=== PATIENT | female | born 1965 | race African-American/Black ===

== ENCOUNTER 2016-04-03 18:24 | Emergency (ER) | payer MEDICAID ==
[~2016-04-03] VITALS: Ht 157.5 cm; Wt 90.7 kg
[~2016-04-03 18:24] MED LIST: ALBU6.7H IH; DILT30TA14 PO; FERR325T41 PO; FURO40TA2 PO; HYDR-3326 PO; IBUP-1955 PO; PANT40TA2 PO; PRED20TA PO; PROP40TA7 PO; SIME125C81 PO
[2016-04-03] MEDS ORDERED: ALBUTEROL FS 2.5 MG/3 ML VIAL.NEB NEB ONE (23:00)
[2016-04-03] MEDS ORDERED: ASPIRIN 325 MG TABLET PO ONE (23:00)
[2016-04-03 23:07] LABS: BASOPHILS % (AUTO) 0.6 % (0.0-2.0); DIFF TOTAL % 100 %; EOSINOPHILS # (AUTO) 0.2 /CMM (0.0-0.7); EOSINOPHILS % (AUTO) 4.6 % (0.0-6.0); HEMATOCRIT 35 % (33-45); HEMOGLOBIN 10.7 g/dL (11.5-14.8); LYMPHOCYTES # (AUTO) 0.3 /CMM (0.8-4.8); LYMPHOCYTES % (AUTO) 6.8 % (20.0-44.0); MEAN CORPUSCULAR HEMOGLOBIN 23 PG (26.0-33.0); MEAN CORPUSCULAR HGB CONC 31 g/dl (31.0-36.0); MEAN CORPUSCULAR VOLUME 74 fL (82-100); MONOCYTES # (AUTO) 0.9 /CMM (0.1-1.30); MONOCYTES % (AUTO) 19.7 % (2.0-12.0); NEUTROPHILS # (AUTO) 3.1 /CMM (1.8-8.9); NEUTROPHILS % (AUTO) 68.3 % (43.0-81.0); PLATELET COUNT (AUTO) 190 /CMM (150-450); RED BLOOD CELL COUNT(AUTO) 4.67 MIL/uL (4.0-5.2); WHITE BLOOD COUNT (AUTO) 4.6 K/uL (4.3-11.0)
[2016-04-03 23:13] LABS: ANION GAP 12 (5-14); CARBON DIOXIDE 24 mmol/L (21-32); CHLORIDE 108 mmol/L (98-107); CREATININE 0.6 mg/dL (0.6-1.3); GFR 128 mL/min (>60); GLUCOSE 96 mg/dL (74-106); POTASSIUM 4.2 mmol/L (3.5-5.1); SODIUM SERUM 140 mmol/L (136-145); UREA NITROGEN, BLOOD 15 mg/dL (7-18)
[2016-04-03 23:21] LABS: TROPONIN I < 0.017 ng/mL (0.00-0.056)
[2016-04-03 23:25] LABS: ALANINE AMINOTRANSFERASE 15 U/L (12-78); ALBUMIN 2.3 g/dL (3.4-5.0); ASPARTATE AMINOTRANSFERASE 22 U/L (15-37); BILIRUBIN,DIRECT 0.3 mg/dL (0.0-0.2); BILIRUBIN,TOTAL 0.5 mg/dL (0.2-1.0); INDIRECT BILIRUBIN 0.2 mg/dL (0.0-1.1); TOTAL PROTEIN, SERUM 6.5 g/dL (6.4-8.2)
[2016-04-03] MEDS ORDERED: ALBUTEROL FS 2.5 MG/3 ML VIAL.NEB ONE (23:39)
[2016-04-03] MEDS ORDERED: ASPIRIN EC 81 MG TABLET.DR PO ONE (23:41)
[2016-04-03 23:49] LABS: INR 1.12 (0.87-1.13); PROTHROMBIN TIME 12.1 SECS (9.5-12.7)
[2016-04-04] MEDS ORDERED: FUROSEMIDE 20 MG/2 ML VIAL IV ONE (01:00)
[2016-04-04 07:06] VITALS: BP 125/70
== END 2016-04-04 04:04 | disposition home or self-care (01) ==
LOC: ER 18:27
DX: I50.9 Heart failure, unspecified (principal); J45.901 Unspecified asthma with (acute) exacerbation; M54.5 Low back pain; G89.29 Other chronic pain; M79.671 Pain in right foot; M79.604 Pain in right leg; I48.91 Unspecified atrial fibrillation; Z88.2 Allergy status to sulfonamides; Z88.6 Allergy status to analgesic agent; Z88.8 Allergy status to other drugs, medicaments and biological substances
CPT/HCPCS: 36415; 71010; 72100; 80048; 80076; 83880; 84484; 85025; 85730; 93005; 94640; 99285; A4606; A6402; Z7610

== ENCOUNTER 2016-04-13 21:03 | Inpatient (IN) | payer MEDICAID ==
[~2016-04-13] VITALS: Ht 157.5 cm; Wt 98.4 kg
[2016-04-13] MEDS ORDERED: FUROSEMIDE 40 MG/4 ML VIAL IV ONE (22:30)
[2016-04-13] MEDS ORDERED: ASPIRIN 325 MG TABLET PO ONE (22:30)
[2016-04-13] MEDS ORDERED: ALBUTEROL FS 2.5 MG/3 ML VIAL.NEB NEB ONE (22:30)
[2016-04-13] MEDS ORDERED: FUROSEMIDE 40 MG/4 ML VIAL ONE (22:39)
[2016-04-13] MEDS ORDERED: ASPIRIN 81 MG TAB.CHEW ONE (22:39)
[2016-04-13 22:48] LABS: BASOPHILS % (AUTO) 0.2 % (0.0-2.0); DIFF TOTAL % 100 %; EOSINOPHILS # (AUTO) 0.2 /CMM (0.0-0.7); EOSINOPHILS % (AUTO) 5.2 % (0.0-6.0); HEMATOCRIT 35 % (33-45); HEMOGLOBIN 11.1 g/dL (11.5-14.8); LYMPHOCYTES # (AUTO) 0.3 /CMM (0.8-4.8); LYMPHOCYTES % (AUTO) 6.6 % (20.0-44.0); MEAN CORPUSCULAR HEMOGLOBIN 23 PG (26.0-33.0); MEAN CORPUSCULAR HGB CONC 31 g/dl (31.0-36.0); MEAN CORPUSCULAR VOLUME 74 fL (82-100); MONOCYTES # (AUTO) 0.8 /CMM (0.1-1.30); MONOCYTES % (AUTO) 17.6 % (2.0-12.0); NEUTROPHILS # (AUTO) 3.2 /CMM (1.8-8.9); NEUTROPHILS % (AUTO) 70.4 % (43.0-81.0); PLATELET COUNT (AUTO) 205 /CMM (150-450); RED BLOOD CELL COUNT(AUTO) 4.81 MIL/uL (4.0-5.2); WHITE BLOOD COUNT (AUTO) 4.6 K/uL (4.3-11.0)
[2016-04-13] MEDS ORDERED: ALBUTEROL FS 2.5 MG/3 ML VIAL.NEB ONE (22:54)
[2016-04-13 23:01] LABS: ANION GAP 11 (5-14); CALCIUM, SERUM 7.8 mg/dL (8.5-10.1); CARBON DIOXIDE 24 mmol/L (21-32); CHLORIDE 108 mmol/L (98-107); CREATININE 0.6 mg/dL (0.6-1.3); GFR 128 mL/min (>60); GLUCOSE 95 mg/dL (74-106); POTASSIUM 4.3 mmol/L (3.5-5.1); SODIUM SERUM 138 mmol/L (136-145); UREA NITROGEN, BLOOD 16 mg/dL (7-18)
[2016-04-13 23:04] LABS: INR 1.08 (0.87-1.13); PROTHROMBIN TIME 11.7 SECS (9.5-12.7)
[2016-04-13 23:07] LABS: TROPONIN I < 0.017 ng/mL (0.00-0.056)
[2016-04-14] MEDS ORDERED: DILTIAZEM HCL 30 MG TABLET ONE (00:43)
[2016-04-14] MEDS ORDERED: METOPROLOL TARTRATE 25 MG TABLET ONE (00:51)
[2016-04-14] MEDS ORDERED: DILTIAZEM HCL 30 MG TABLET PO ONE (01:00)
[2016-04-14 01:03] LABS: BAND % (MANUAL) 1 % (0.0-5.0); BASOPHILS % (MANUAL) 0 % (0.0-2.0); EOSINOPHILS % (MANUAL) 6 % (0-4); LYMPHOCYTES % (MANUAL) 14 % (16-48); PLATELET ESTIMATE ADEQUATE
[2016-04-14 01:04] LABS: ANISOCYTOSIS 1+
[2016-04-14] MEDS ORDERED: METOPROLOL TARTRATE 25 MG TABLET PO ONE (01:30)
[2016-04-14 04:00] VITALS: BP 164/91
[2016-04-14] MEDS ORDERED: ACETAMINOPHEN 325 MG TABLET PO PRN (05:00)
[2016-04-14] MEDS ORDERED: ENOXAPARIN SODIUM 40 MG/0.4 ML DISP.SYRIN SQ SCH (05:00)
[2016-04-14] MEDS ORDERED: Z GUARD REMEDY 2 OZ OINT TP PRN (05:00)
[2016-04-14] MEDS ORDERED: NITROGLYCERIN PACKET 1 GM PACKET TOP SCH (05:00)
[2016-04-14] MEDS ORDERED: MAG HYDROX/AL HYDROX/SIMETH 30 ML UDC PO PRN (05:00)
[2016-04-14] MEDS ORDERED: ONDANSETRON HCL/PF 4 MG/2 ML VIAL IVP PRN (05:00)
[2016-04-14] MEDS ORDERED: ZOLPIDEM TARTRATE 5 MG TABLET PO PRN (05:00)
[2016-04-14] MEDS ORDERED: MAGNESIUM HYDROXIDE 30 ML UDC PO PRN (05:00)
[2016-04-14] MEDS ORDERED: MORPHINE SULFATE INJ 2 MG/ML DISP.SYRIN IV PRN (05:00)
[2016-04-14] MEDS: DILTIAZEM HCL 30 MG TABLET PO SCH ×4 (06:00→23:30)
[2016-04-14 08:00] VITALS: BP_SYST 120; BP_SYST 125; BP_DIAS 72; BP_DIAS 77
[2016-04-14] MEDS: HYDROCODONE/APAP 5/325MG 1 EACH TABLET PO PRN ×2 (08:38→21:16)
[2016-04-14] MEDS: PANTOPRAZOLE 40 MG TABLET.DR PO SCH (08:39)
[2016-04-14] MEDS: FERROUS SULFATE (325 MG) 325 MG/TAB TABLET PO SCH (08:39)
[2016-04-14] MEDS: PROPRANOLOL HCL 40 MG TABLET PO SCH ×3 (09:00→16:19)
[2016-04-14] MEDS ORDERED: SIMETHICONE 80 MG TAB.CHEW PO PRN (09:00)
[2016-04-14] MEDS: NITROGLYCERIN 30 GM TUBE TOP SCH ×2 (09:00→21:00)
[2016-04-14] MEDS ORDERED: FUROSEMIDE 40 MG/4 ML VIAL IV SCH (09:00)
[2016-04-14] MEDS ORDERED: BUMETANIDE INJ 8 MG in IV NS 0.9% 48 ML IV ONE (09:30)
[2016-04-14 10:22] LABS: IRON, SERUM 25 ug/dl (50-175); PERCENT SATURATION 7 % (14-33); TOTAL IRON BINDING CAPACITY 357 ug/dl (250-450)
[2016-04-14] MEDS ORDERED: LEVALBUTEROL HCL NEB 1.25 MG/0.5 ML VIAL.NEB IH SCH (10:30)
[2016-04-14 10:36] LABS: CHOLESTEROL 99 mg/dL (<200); HDL CHOLESTEROL 29 mg/dL (40-60); LDL 63 mg/dL (0-99); THYROID STIMULATING HORMONE < 0.007 uIU/mL (0.358-3.74); TRIGLYCERIDES 46 mg/dL (30-150)
[2016-04-14] MEDS ORDERED: IV SET PRIMARY PUMP SET 1 EA INFUS.SET MC ONE (10:46)
[2016-04-14] MEDS: methylPREDNISolone SOD SUCC 125 MG/2ML VIAL IV SCH ×2 (11:55→16:38)
[2016-04-14 12:00] VITALS: BP 125/70
[2016-04-14 12:07] VITALS: BP 125/70
[2016-04-14] MEDS ORDERED: METO25TA PO (13:13)
[2016-04-14] MEDS ORDERED: DIGO125T PO (13:13)
[2016-04-14] MEDS ORDERED: ERGO500013 PO (13:16)
[2016-04-14] MEDS ORDERED: METHIMAZOLE (5MG) 5 MG TABLET PO SCH (14:00)
[2016-04-14] MEDS ORDERED: DIGOXIN 0.125 MG TABLET PO SCH (14:30)
[2016-04-14] MEDS: IPRATROPIUM NEB FS 0.5 MG/2.5 ML AMPUL.NEB NEB SCH ×2 (14:33→19:54)
[2016-04-14] MEDS: ALBUTEROL FS 2.5 MG/0.5 ML VIAL.NEB NEB SCH ×2 (14:33→19:54)
[2016-04-14 15:02] LABS: URIC ACID 5.4 mg/dL (2.6-7.2)
[2016-04-14 15:15] LABS: C-REACTIVE PROTEIN 1.8 mg/dL (0.0-0.9)
[2016-04-14 15:28] LABS: THYROID STIMULATING HORMONE < 0.007 uIU/mL (0.358-3.74)
[2016-04-14 16:00] VITALS: BP 142/89
[2016-04-14] MEDS: DIGOXIN 0.125 MG TABLET PO SCH (16:19)
[2016-04-14 16:59] LABS: RETICULOCYTE COUNT 1.9 % (0.6-2.5)
[2016-04-14 20:00] VITALS: BP 133/74
[2016-04-15] MEDS: ALBUTEROL FS 2.5 MG/0.5 ML VIAL.NEB NEB SCH ×4 (00:54→19:44)
[2016-04-15] MEDS: IPRATROPIUM NEB FS 0.5 MG/2.5 ML AMPUL.NEB NEB SCH ×4 (00:54→19:44)
[2016-04-15] MEDS: HYDROCODONE/APAP 5/325MG 1 EACH TABLET PO PRN ×2 (01:46→22:23)
[2016-04-15 04:00] VITALS: BP 113/59
[2016-04-15 05:02] LABS: DIFF TOTAL % 100 %; EOSINOPHILS % (AUTO) 0.2 % (0.0-6.0); HEMATOCRIT 34 % (33-45); HEMOGLOBIN 10.8 g/dL (11.5-14.8); LYMPHOCYTES # (AUTO) 0.1 /CMM (0.8-4.8); LYMPHOCYTES % (AUTO) 2.7 % (20.0-44.0); MEAN CORPUSCULAR HEMOGLOBIN 23 PG (26.0-33.0); MEAN CORPUSCULAR HGB CONC 32 g/dl (31.0-36.0); MEAN CORPUSCULAR VOLUME 73 fL (82-100); MONOCYTES # (AUTO) 0.4 /CMM (0.1-1.30); MONOCYTES % (AUTO) 8.7 % (2.0-12.0); NEUTROPHILS # (AUTO) 3.8 /CMM (1.8-8.9); NEUTROPHILS % (AUTO) 88.4 % (43.0-81.0); PLATELET COUNT (AUTO) 211 /CMM (150-450); RED BLOOD CELL COUNT(AUTO) 4.66 MIL/uL (4.0-5.2); WHITE BLOOD COUNT (AUTO) 4.4 K/uL (4.3-11.0)
[2016-04-15 05:16] LABS: CALCIUM, SERUM 8.1 mg/dL (8.5-10.1); CREATININE 0.7 mg/dL (0.6-1.3); PHOSPHORUS 4.3 mg/dL (2.5-4.9); POTASSIUM 3.8 mmol/L (3.5-5.1)
[2016-04-15] MEDS: DILTIAZEM HCL 30 MG TABLET PO SCH ×4 (05:40→23:38)
[2016-04-15 05:55] LABS: BASOPHILS % (MANUAL) 0 % (0.0-2.0); EOSINOPHILS % (MANUAL) 0 % (0-4); LYMPHOCYTES % (MANUAL) 8 % (16-48); PLATELET ESTIMATE ADEQUATE
[2016-04-15 05:56] LABS: ANISOCYTOSIS 1+
[2016-04-15 08:00] VITALS: BP 139/75
[2016-04-15] MEDS: FERROUS SULFATE (325 MG) 325 MG/TAB TABLET PO SCH (08:52)
[2016-04-15] MEDS: methylPREDNISolone SOD SUCC 125 MG/2ML VIAL IV SCH ×2 (08:52→16:17)
[2016-04-15] MEDS: PROPRANOLOL HCL 40 MG TABLET PO SCH ×3 (08:53→16:54)
[2016-04-15] MEDS: PANTOPRAZOLE 40 MG TABLET.DR PO SCH (08:55)
[2016-04-15] MEDS: NITROGLYCERIN 30 GM TUBE TOP SCH ×2 (08:56→21:00)
[2016-04-15] MEDS: ENOXAPARIN SODIUM 40 MG/0.4 ML DISP.SYRIN SQ SCH (08:56)
[2016-04-15 09:22] LABS: *THYROGLOBULIN 1.4 IU/mL (0.0-0.9); CA 27.29 40.8 U/mL (0.0-38.6)
[2016-04-15 10:32] LABS: VIT D, 25-HYDROXY 39.7 ng/mL (30.0-100.0)
[2016-04-15] MEDS: NEOMY SULF/BACITRAC ZN/POLY 15 GM TUBE TP SCH (11:13)
[2016-04-15] MEDS ORDERED: BUMETANIDE INJ 8 MG in IV NS 0.9% 48 ML IV ONE (11:30)
[2016-04-15 12:00] VITALS: BP 123/75
[2016-04-15] MEDS ORDERED: IV SET PRIMARY PUMP SET 1 EA INFUS.SET MC ONE (12:29)
[2016-04-15] MEDS: DIGOXIN 0.125 MG TABLET PO SCH (12:32)
[2016-04-15] MEDS: POTASSIUM CHLORIDE 20 MEQ TAB.PRT.SR PO SCH ×3 (12:34→15:19)
[2016-04-15 16:00] VITALS: BP 113/82
[2016-04-15] MEDS: PROPYLTHIOURACIL 50 MG TABLET PO SCH ×2 (16:00→21:00)
[2016-04-15 18:39] LABS: ADD UA MICROSCOPIC NO; KETONES,URINE NEGATIVE (NEGATIVE); LEUKOCYTE ESTERASE ,URINE NEGATIVE (NEGATIVE); PH,URINE 6.5 (5.0-8.0)
[2016-04-15 20:00] VITALS: BP 123/74
[2016-04-16] MEDS: ALBUTEROL FS 2.5 MG/0.5 ML VIAL.NEB NEB SCH ×4 (01:08→20:14)
[2016-04-16] MEDS: IPRATROPIUM NEB FS 0.5 MG/2.5 ML AMPUL.NEB NEB SCH ×4 (01:08→20:14)
[2016-04-16 04:00] VITALS: BP 115/74
[2016-04-16] MEDS: PROPYLTHIOURACIL 50 MG TABLET PO SCH ×3 (05:00→20:33)
[2016-04-16] MEDS: DILTIAZEM HCL 30 MG TABLET PO SCH ×4 (05:59→23:16)
[2016-04-16 06:49] LABS: ALBUMIN 2.3 g/dL (3.4-5.0); BILIRUBIN,TOTAL 0.4 mg/dL (0.2-1.0); CALCIUM, SERUM 8.3 mg/dL (8.5-10.1); CREATININE 0.6 mg/dL (0.6-1.3); POTASSIUM 4.1 mmol/L (3.5-5.1); TOTAL PROTEIN, SERUM 6.8 g/dL (6.4-8.2)
[2016-04-16 08:00] VITALS: BP 126/77
[2016-04-16] MEDS: NEOMY SULF/BACITRAC ZN/POLY 15 GM TUBE TP SCH (09:00)
[2016-04-16] MEDS: NITROGLYCERIN 30 GM TUBE TOP SCH ×2 (09:00→20:34)
[2016-04-16] MEDS: methylPREDNISolone SOD SUCC 125 MG/2ML VIAL IV SCH (09:19)
[2016-04-16] MEDS ORDERED: BUMETANIDE INJ 8 MG in IV NS 0.9% 48 ML IV ONE (09:30)
[2016-04-16] MEDS: PANTOPRAZOLE 40 MG TABLET.DR PO SCH (10:38)
[2016-04-16] MEDS: PROPRANOLOL HCL 40 MG TABLET PO SCH ×3 (10:38→19:00)
[2016-04-16] MEDS: HYDROCODONE/APAP 5/325MG 1 EACH TABLET PO PRN (10:41)
[2016-04-16] MEDS: FERROUS SULFATE (325 MG) 325 MG/TAB TABLET PO SCH (10:41)
[2016-04-16] MEDS: ENOXAPARIN SODIUM 40 MG/0.4 ML DISP.SYRIN SQ SCH ×2 (10:43→10:55)
[2016-04-16] MEDS ORDERED: SECONDARY IV SET 1 EA INFUS.SET MC ONE (11:14)
[2016-04-16] MEDS ORDERED: IV SET PRIMARY PUMP SET 1 EA INFUS.SET MC ONE (11:16)
[2016-04-16 12:00] VITALS: BP_SYST 128; BP_SYST 136; BP_DIAS 4; BP_DIAS 80
[2016-04-16] MEDS: DIGOXIN 0.125 MG TABLET PO SCH (13:00)
[2016-04-16 16:00] VITALS: BP 118/72
[2016-04-16 20:00] VITALS: BP 122/77
[2016-04-16] MEDS: GUAIFENESIN LA 600 MG TABLET.SA PO SCH (20:32)
[2016-04-17] MEDS: IPRATROPIUM NEB FS 0.5 MG/2.5 ML AMPUL.NEB NEB SCH ×2 (01:36→07:55)
[2016-04-17] MEDS: ALBUTEROL FS 2.5 MG/0.5 ML VIAL.NEB NEB SCH ×2 (01:36→07:55)
[2016-04-17 04:00] VITALS: BP 122/85
[2016-04-17] MEDS: PROPYLTHIOURACIL 50 MG TABLET PO SCH (04:43)
[2016-04-17] MEDS: DILTIAZEM HCL 30 MG TABLET PO SCH (06:00)
[2016-04-17 07:49] LABS: DIFF TOTAL % 100 %; HEMATOCRIT 37 % (33-45); HEMOGLOBIN 11.6 g/dL (11.5-14.8); LYMPHOCYTES # (AUTO) 0.3 /CMM (0.8-4.8); LYMPHOCYTES % (AUTO) 2.8 % (20.0-44.0); MEAN CORPUSCULAR HEMOGLOBIN 23 PG (26.0-33.0); MEAN CORPUSCULAR HGB CONC 31 g/dl (31.0-36.0); MEAN CORPUSCULAR VOLUME 74 fL (82-100); MONOCYTES # (AUTO) 1.6 /CMM (0.1-1.30); MONOCYTES % (AUTO) 15.3 % (2.0-12.0); NEUTROPHILS # (AUTO) 8.4 /CMM (1.8-8.9); NEUTROPHILS % (AUTO) 81.9 % (43.0-81.0); PLATELET COUNT (AUTO) 252 /CMM (150-450); RED BLOOD CELL COUNT(AUTO) 5.04 MIL/uL (4.0-5.2); WHITE BLOOD COUNT (AUTO) 10.3 K/uL (4.3-11.0)
[2016-04-17 08:00] VITALS: BP 117/80
[2016-04-17 08:00] LABS: CALCIUM, SERUM 7.6 mg/dL (8.5-10.1); CREATININE 0.5 mg/dL (0.6-1.3); POTASSIUM 3.7 mmol/L (3.5-5.1)
[2016-04-17] MEDS: FERROUS SULFATE (325 MG) 325 MG/TAB TABLET PO SCH (08:59)
[2016-04-17] MEDS: PROPRANOLOL HCL 40 MG TABLET PO SCH (08:59)
[2016-04-17 09:00] VITALS: BP 117/80
[2016-04-17] MEDS: PANTOPRAZOLE 40 MG TABLET.DR PO SCH (09:00)
[2016-04-17] MEDS ORDERED: methylPREDNISolone SOD SUCC 125 MG/2ML VIAL IV SCH (09:00)
[2016-04-17] MEDS: NITROGLYCERIN 30 GM TUBE TOP SCH (09:00)
[2016-04-17] MEDS: GUAIFENESIN LA 600 MG TABLET.SA PO SCH (09:00)
[2016-04-17] MEDS: NEOMY SULF/BACITRAC ZN/POLY 15 GM TUBE TP SCH (09:00)
[2016-04-17] MEDS ORDERED: PRED10TA PO (10:29)
[2016-04-17] MEDS ORDERED: PRED20TA PO (10:29)
[2016-04-18 23:06] LABS: THYROGLOBULIN BY RIA 20 ng/mL (.)
[2016-04-19] MEDS ORDERED: ERGOCALCIFEROL (VITAMIN D 2) 50,000 UNIT CAPSULE PO SCH (09:00)
== END 2016-04-17 12:14 | disposition home or self-care (01) | DRG 144 ==
LOC: ER 21:07 → TELE1 04-14 03:41 → MEDSG1 04-14 12:44
PROVIDERS: ADMIT Internal Medicine; ATTEND Internal Medicine
DX: J98.01 Acute bronchospasm (principal); I50.33 Acute on chronic diastolic (congestive) heart failure; I27.2 Other secondary pulmonary hypertension; R18.8 Other ascites; D47.9 Neoplasm of uncertain behavior of lymphoid, hematopoietic and related tissue, unspecified; E83.42 Hypomagnesemia; I48.2 Chronic atrial fibrillation; R07.9 Chest pain, unspecified; E05.90 Thyrotoxicosis, unspecified without thyrotoxic crisis or storm; D50.9 Iron deficiency anemia, unspecified; Z91.14 Patient's other noncompliance with medication regimen; E06.3 Autoimmune thyroiditis; J98.11 Atelectasis; R59.0 Localized enlarged lymph nodes; R04.0 Epistaxis
CPT/HCPCS: 36415; 71010-TC; 76536-TC; 80048-TC; 80053-TC; 80061-TC; 80162-TC; 81000-TC; 82040-TC; 82232; 82272-TC; 82306; 82378; 82728-TC; 82746; 83540-TC; 83615-TC; 83735-TC; 84100-TC; 84439-TC; 84443-TC; 84484-TC; 84550-TC; 85025-TC; 85045-TC; 85652-TC; 85730-TC; 86140-TC; 86300; 86304; 87081-TC; 93307-TC; 93970-TC; A4216; A4606; A6402; J1650; J1940; J2930; J3490; Z7610